=== PATIENT | female | born 1975 | race Caucasian/White ===

== ENCOUNTER 2022-08-30 22:02 | Outpatient (REF) | payer MEDICARE, SELFPAY ==
[2022-08-30 22:32] LABS: Abs Immature Grans 0.04 10^3/uL (0.0-0.06); Absolute Basophil Count 0.07 10^3/uL (0.0-0.2); Absolute Lymphocyte Count 2.57 10^3/uL (1.2-3.4); Basophils % 0.6; HCT 32.5 % (36.0-46.0); HGB 9.8 g/dL (11.2-15.7); Immature Grans % 0.4; MCH 27.1 pg (27.0-33.0); MCHC 30.2 % (32.0-36.0); MCV 90 fL (80-95); MPV 9.4 fL (8.0-11.0); Monocytes % 3.6; Neutrophils % 69.4; Platelet Count 725 10^3/uL (130-400); RBC 3.62 10^6/uL (3.93-5.22); RDW-SD 62.4 fL; WBC 11.18 10^3/uL (4.4-10.8)
[2022-08-30 22:33] LABS: Absolute Eosinophil Count 0.34 10^3/uL (0.0-0.7); Absolute Neutrophil Count 7.76 10^3/uL (1.2-6.7)
[2022-08-30 22:39] LABS: Hemoglobin A1C 7.2 % (<5.7)
[2022-08-30 22:59] LABS: ALT 14 U/L (14-59); AST 17 U/L (15-37); Albumin 2.3 g/dL (3.4-5.0); Alkaline Phosphatase 154 U/L (46-116); Anion Gap 8.7 mmol/L (3-11); BUN 15 mg/dL (7-18); Bilirubin, Total 0.3 mg/dL (0.2-1.0); CO2 33.3 mmol/L (21.0-32.0); CREATININE 0.8 mg/dL (0.55-1.02); Calcium 8.5 mg/dL (8.5-10.1); Chloride 95 mmol/L (98-107); Estimated GFR 90.83 (mL/min/1.73m2); Glucose 151 mg/dL (74-106); Magnesium 1.5 mg/dL (1.8-2.4); Potassium 3.7 mmol/L (3.5-5.1); Sodium 137 mmol/L (136-145); TSH (W/Ref FT4) 7.45 uIU/mL (0.36-3.74); Total Protein 7.7 g/dL (6.4-8.2)
[2022-08-30 23:20] LABS: FREE T4 1.32 ng/dL (0.76-1.46)
== END 2022-08-30 22:03 | disposition home or self-care (01) ==
LOC: LBN 22:02
PROVIDERS: Visit Provider Legal Medicine
DX: I48.91 Unspecified atrial fibrillation (principal); E11.9 Type 2 diabetes mellitus without complications; E66.01 Morbid (severe) obesity due to excess calories
CPT/HCPCS: 80053; 83036; 83735; 84439; 84443; 85025

== ENCOUNTER 2022-10-25 20:29 | Outpatient (REF) | payer MEDICARE, SELFPAY ==
[2022-10-25 20:59] LABS: TSH 8.95 uIU/mL (0.36-3.74)
== END 2022-10-25 20:30 | disposition home or self-care (01) ==
LOC: LBN 20:29
PROVIDERS: Visit Provider Legal Medicine
DX: E03.9 Hypothyroidism, unspecified (principal)
CPT/HCPCS: 84443

== ENCOUNTER 2022-12-13 18:35 | Outpatient (REF) | payer MEDICARE, SELFPAY ==
[2022-12-13 14:49] LABS: Abs Immature Grans 0.02 10^3/uL (0.0-0.06); Absolute Basophil Count 0.07 10^3/uL (0.0-0.2); Absolute Eosinophil Count 0.16 10^3/uL (0.0-0.7); Absolute Lymphocyte Count 1.82 10^3/uL (1.2-3.4); Absolute Monocyte Count 0.36 10^3/uL (0.1-0.8); Absolute Neutrophil Count 5.77 10^3/uL (1.2-6.7); Basophils % 0.9; HGB 10.3 g/dL (11.2-15.7); Immature Grans % 0.2; Lymphocytes % 22.2; MCH 27.2 pg (27.0-33.0); MCHC 31.2 % (32.0-36.0); MCV 87 fL (80-95); MPV 9.5 fL (8.0-11.0); Monocytes % 4.4; Neutrophils % 70.3; Platelet Count 558 10^3/uL (130-400); RBC 3.79 10^6/uL (3.93-5.22); RDW 15.5 % (11.7-14.6); RDW-SD 48.5 fL
[2022-12-13 15:01] LABS: Hemoglobin A1C 8.3 % (<5.7)
== END 2022-12-13 18:36 | disposition home or self-care (01) ==
LOC: LBN 18:35
PROVIDERS: Visit Provider Legal Medicine
DX: D64.9 Anemia, unspecified (principal); E11.9 Type 2 diabetes mellitus without complications
CPT/HCPCS: 83036; 85025

== ENCOUNTER 2022-12-16 21:06 | Outpatient (REF) | payer MEDICARE, SELFPAY ==
[2022-12-16 21:33] LABS: Iron 36 ug/dL (50-170); Total Iron Binding Capacity 345 ug/dL (250-450); Transferrin Sat 10 % (15-50)
[2022-12-16 22:00] LABS: Anion Gap 6.5 mmol/L (3-11); BUN 12 mg/dL (7-18); CO2 33.5 mmol/L (21.0-32.0); CREATININE 0.9 mg/dL (0.55-1.02); Calcium 8.3 mg/dL (8.5-10.1); Chloride 94 mmol/L (98-107); Estimated GFR 78.86 (mL/min/1.73m2); Folate 14.8 ng/mL (8.6-20.0); Glucose 183 mg/dL (74-106); Magnesium 1.7 mg/dL (1.8-2.4); Sodium 134 mmol/L (136-145); Vitamin B12 932 pg/mL (193-986)
[2022-12-16 22:18] LABS: FREE T4 1.11 ng/dL (0.76-1.46)
== END 2022-12-16 21:07 | disposition home or self-care (01) ==
LOC: LBN 21:06
PROVIDERS: Visit Provider Legal Medicine
DX: D64.9 Anemia, unspecified (principal); E03.9 Hypothyroidism, unspecified; Z86.39 Personal history of other endocrine, nutritional and metabolic disease; R79.89 Other specified abnormal findings of blood chemistry
CPT/HCPCS: 80048; 82607; 82746; 83540; 83550; 83735; 84439; 84443

== ENCOUNTER 2023-04-02 11:32 | Outpatient (REF) | payer MEDICARE, SELFPAY ==
[2023-04-02 13:19] LABS: Hemoglobin A1C 9.8 % (<5.7)
[2023-04-02 13:25] LABS: ALT 11 U/L (14-59); AST 15 U/L (15-37); Albumin 2.6 g/dL (3.4-5.0); Alkaline Phosphatase 191 U/L (46-116); Anion Gap 5.1 mmol/L (3-11); BUN 15 mg/dL (7-18); Bilirubin, Total 1.1 mg/dL (0.2-1.0); CO2 35.9 mmol/L (21.0-32.0); CREATININE 1.1 mg/dL (0.55-1.02); Calcium 8.3 mg/dL (8.5-10.1); Chloride 96 mmol/L (98-107); Glucose 180 mg/dL (74-106); Potassium 3.5 mmol/L (3.5-5.1); Sodium 137 mmol/L (136-145); TSH 5.38 uIU/mL (0.36-3.74); Total Protein 7.9 g/dL (6.4-8.2)
== END 2023-04-02 11:33 | disposition home or self-care (01) ==
LOC: LBN 11:32
PROVIDERS: Visit Provider Legal Medicine
DX: E11.9 Type 2 diabetes mellitus without complications (principal)
CPT/HCPCS: 80053; 83036; 84443

== ENCOUNTER 2023-07-23 10:37 | Outpatient (REF) | payer MEDICARE, SELFPAY ==
[2023-07-23 12:41] LABS: Abs Immature Grans 0.01 10^3/uL (0.0-0.06); Absolute Basophil Count 0.09 10^3/uL (0.0-0.2); Absolute Eosinophil Count 0.14 10^3/uL (0.0-0.7); Absolute Lymphocyte Count 1.47 10^3/uL (1.2-3.4); Absolute Monocyte Count 0.46 10^3/uL (0.1-0.8); Absolute Neutrophil Count 5.03 10^3/uL (1.2-6.7); Basophils % 1.3; Eosinophils % 1.9; HCT 34.6 % (36.0-46.0); HGB 10.7 g/dL (11.2-15.7); Immature Grans % 0.1; Lymphocytes % 20.4; MCH 24.3 pg (27.0-33.0); MCHC 30.9 % (32.0-36.0); MCV 79 fL (80-95); MPV 10.4 fL (8.0-11.0); Monocytes % 6.4; Neutrophils % 69.9; Platelet Count 560 10^3/uL (130-400); RDW 18.6 % (11.7-14.6); RDW-SD 52.5 fL
[2023-07-23 13:56] LABS: Iron 47 ug/dL (50-170); Total Iron Binding Capacity 435 ug/dL (250-450); Transferrin Sat 11 % (15-50)
[2023-07-23 14:19] LABS: ALT 20 U/L (14-59); AST 28 U/L (15-37); Albumin 3.4 g/dL (3.4-5.0); Alkaline Phosphatase 204 U/L (46-116); BUN 72 mg/dL (7-18); CREATININE 1.4 mg/dL (0.55-1.02); Calcium 9.7 mg/dL (8.5-10.1); Chloride 90 mmol/L (98-107); Estimated GFR 46.12 (mL/min/1.73m2); Ferritin 36 ng/mL (8-252); Glucose 216 mg/dL (74-106); Potassium 3.8 mmol/L (3.5-5.1); Sodium 133 mmol/L (136-145); Total Protein 9.6 g/dL (6.4-8.2); Vitamin B12 1311 pg/mL (193-986)
[2023-07-23 14:21] LABS: Folate > 20.0 ng/mL (8.6-20.0)
== END 2023-07-23 10:38 | disposition home or self-care (01) ==
LOC: LBN 10:37
PROVIDERS: Visit Provider Legal Medicine
DX: D64.9 Anemia, unspecified (principal)
CPT/HCPCS: 80053; 82607; 82728; 82746; 83540; 83550; 85025

== ENCOUNTER 2023-09-12 13:47 | Outpatient (REF) | payer MEDICARE, SELFPAY ==
[2023-09-12 15:01] LABS: Anion Gap 12.3 mmol/L (3-11); CO2 33.7 mmol/L (21.0-32.0); CREATININE 2.2 mg/dL (0.55-1.02); Calcium 9.9 mg/dL (8.5-10.1); Chloride 84 mmol/L (98-107); Estimated GFR 26.81 (mL/min/1.73m2); Glucose 127 mg/dL (74-106); Sodium 130 mmol/L (136-145); TSH 0.06 uIU/Ml (0.36-3.74)
[2023-09-12 15:04] LABS: Hemoglobin A1C 8.9 % (<5.7)
[2023-09-12 15:14] LABS: BUN 95 mg/dL (7-18)
== END 2023-09-12 13:48 | disposition home or self-care (01) ==
LOC: LBN 13:47
PROVIDERS: Visit Provider Legal Medicine
DX: E11.9 Type 2 diabetes mellitus without complications (principal)
CPT/HCPCS: 80048; 83036; 84443